=== PATIENT | male | born 1990 | race African-American/Black ===

== ENCOUNTER 2019-04-11 14:15 | Emergency (ER) | payer OTHER ==
[~2019-04-11] VITALS: Ht 182.9 cm; Wt 108.9 kg
[~2019-04-11 14:15] MED LIST: CLEOCIN HCL150 MG PO; IBUPROFEN 600600 M1 PO; NORCO 5-325 TA1 EACH PO
[2019-04-11 14:31] LABS: URINE BLOOD 1+ (Negative); URINE CLARITY CLEAR; URINE COLOR YELLOW; URINE GLUCOSE-RANDOM* NEGATIVE (Negative); URINE KETONES TRACE (Negative); URINE LEUKOCYTES-REFLEX NEGATIVE (Negative); URINE NITRITE-REFLEX NEGATIVE (Negative); URINE PROTEIN (DIPSTICK) NEGATIVE (Negative)
[2019-04-11 14:42] LABS: ICTOTEST (BILI CONFIRMATORY) Negative (Negative); URINE BILIRUBIN NEGATIVE (Negative)
[2019-04-11 15:06] LABS: HEMATOCRIT 39.2 % (42.0-52.0); HEMOGLOBIN 13.3 gm/dL (14.0-18.0); MCH 31.2 pg (26.0-34.0); MCV 91.6 fL (80.0-100.0); PLATELET COUNT 197 thou/uL (150-400); RBC 4.28 mil/uL (4.50-6.00); RDW 11.9 % (10.5-14.5); WBC 10.1 thou/uL (4.0-11.0)
[2019-04-11 15:19] LABS: ALBUMIN 2.9 g/dL (3.4-5.0); CREATININE 1.1 mg/dL (0.7-1.3); POTASSIUM 3.5 mmol/L (3.5-5.1); TOTAL BILIRUBIN 1.1 mg/dL (<0.1-1.0); TOTAL PROTEIN 7.2 g/dL (6.4-8.2)
[2019-04-11 15:27] LABS: CALCIUM 8.8 mg/dL (8.5-10.1)
[2019-04-11] MEDS ORDERED: ONDANSETRON ODT8 MG PO (15:31)
[2019-04-11] MEDS ORDERED: PRILOSEC OTC20 MG PO (15:31)
[2019-04-11 15:36] LABS: CASTS None Seen /LPF (None Seen); CRYSTALS None Seen /LPF (None Seen); SQUAMOUS 0-3 Few /LPF (0-3); URINE RBC 0-2 Rare /HPF (0-2); URINE WBC-REFLEX 0-5 Rare /HPF (0-5)
[2019-04-11 15:37] LABS: BACTERIA-REFLEX 1-9 Few /HPF (None Seen); MUCUS 0-3 Light strn/LPF (None Seen)
[2019-04-11 16:01] LABS: ABSOLUTE NEUTROPHILS 7.8 thou/uL (1.4-8.2)
[2019-04-11 16:02] LABS: ANISOCYTOSIS SLIGHT
[2019-04-11 16:23] VITALS: BP 115/62
[2019-04-11] MEDS ORDERED: IBUPROFEN 800800 MG PO (16:30)
== END 2019-04-11 16:48 | disposition home or self-care (01) ==
LOC: ER 14:15
PROVIDERS: Emergency Medicine
DX: R11.2 Nausea with vomiting, unspecified (principal); R19.7 Diarrhea, unspecified; M79.18 Myalgia, other site; M54.6 Pain in thoracic spine; R10.13 Epigastric pain